=== PATIENT | male | born 1965 | race Caucasian/White ===

== ENCOUNTER → 2017-03-17 | Outpatient (CLI) | payer BC | END | disposition home or self-care (01) | LOC: GMAL 11:46 | PROVIDERS: ATTEND Family Medicine | DX: Z00.00 Encounter for general adult medical examination without abnormal findings (principal) ==

== ENCOUNTER 2018-04-26 20:48 | Emergency (ER) | payer SELFPAY ==
[2018-04-26 21:07] VITALS: O2SAT 99
[2018-04-26] MEDS ORDERED: KETOROLAC TROMETHAMINE INJ 30 MG/ML VIAL IM ONE (21:26)
--- NOTE | 2018-04-26 21:34 | ED.PDOC ---
History of Present Illness - General Chief Complaint: Laceration Stated Complaint: finger laceration Time Seen by Provider: 04/26/18 21:24 Source: patient Exam Limitations: no limitations - History of Present Illness Initial Comments: Patient presents with a laceration to the right distal anterior 2nd finger that he got when cut by a table saw this afternoon. He visited Dr. Garcia at his house and it was suggested that he come here for possible radiographs. The patient has significant pain at that area. No other injuries. Timing/Duration: 1-3 hours Severity: moderate Improving Factors: rest Associated Symptoms: denies symptoms Allergies/Adverse Reactions: Allergies Doxycycline Allergy (Verified 04/26/18 21:07) Home Medications: Ambulatory Orders Amphetamine-Dextroamphetamine [Adderall] 1 tab PO DAILY 04/26/18 Cephalexin Monohydrate [Keflex] 250 mg PO QID #28 cap 04/26/18 Finasteride [Proscar] 5 mg PO DAILY 04/26/18 HYDROcodone 5MG/APAP 325MG [Red Level 5/325] 1 PO DAILY 04/26/18 Ketorolac Tromethamine [Toradol Tabs] 10 mg PO Q6HRS #16 tab 04/26/18 Olmesartan Medoxomil [Benicar] 40 mg PO DAILY 04/26/18 Sertraline HCl [Zoloft] 50 mg PO DAILY 04/26/18 Review of Systems - Review of Systems Constitutional: States: no symptoms reported EENTM: States: no symptoms reported Respiratory: States: no symptoms reported Cardiology: States: no symptoms reported Gastrointestinal/Abdominal: States: no symptoms reported Genitourinary: States: no symptoms reported Musculoskeletal: States: see HPI Skin: States: see HPI Neurological: States: no symptoms reported Endocrine: States: no symptoms reported Hematologic/Lymphatic: States: no symptoms reported Past Medical History (General) - Patient Medical History Hx Hypertension: Yes Hx Diabetes: No - Vaccination History Hx Tetanus, Diphtheria Vaccination: No Hx Influenza Vaccination: No - Triage Comment ED Triage Comment: fingerpad on rt index finger sliced jagged with table saw cut at home Family Medical History - Family History Father Family History: Unknown Physical Exam - Physical Exam General Appearance: Alert Respiratory: lungs clear Cardiovascular/Chest: normal peripheral pulses, regular rate, rhythm Extremity: other - 5/5 strength to flexion/extension/adduction/abduction of the right 2nd finger. There is a complex laceration extending into the musculature with ripped edges. It is hemostatic and TTP. Nail is intact. Progress - Progress Progress: 04/26/18 22:45 Radiographs showed a tuft fracture of the right distal phalange of the second finger. Patient was given a U shaped splint to immobilize the DIP joint but keep the PIP joint free. Keflex 500 mg po x one in the E.D. and a 7 day RX for 250 qid. Patient asked to follow up with Dr. Urbina in 4-7 days. Care instructions given. E.R. warnings given. Questions were elicited and answered. Patient voiced understanding and agreement with the plan. Departure - Departure Clinical Impression: Closed fracture of tuft of distal phalanx of finger Disposition: Discharge to Home or Self Care Condition: Good Departure Forms: ED Discharge - Pt. Copy, Patient Portal Self Enrollment Instructions: DI for Laceration Repair, DI for [employer] Laceration (Not Requiring Sutures), Laceration Infection (DC) Diet: resume usual diet Activity: increase activity as tolerated Referrals: Jovi Garcia III, MD [Primary Care Provider] - 1-2 Weeks Prescriptions: Ketorolac Tromethamine [Toradol Tabs] 10 mg PO Q6HRS #16 tab Cephalexin Monohydrate [Keflex] 250 mg PO QID #28 cap Home Medications: Ambulatory Orders Amphetamine-Dextroamphetamine [Adderall] 1 tab PO DAILY 04/26/18 Cephalexin Monohydrate [Keflex] 250 mg PO QID #28 cap 04/26/18 Finasteride [Proscar] 5 mg PO DAILY 04/26/18 HYDROcodone 5MG/APAP 325MG [Red Level 5/325] 1 PO DAILY 04/26/18 Ketorolac Tromethamine [Toradol Tabs] 10 mg PO Q6HRS #16 tab 04/26/18 Olmesartan Medoxomil [Benicar] 40 mg PO DAILY 04/26/18 Sertraline HCl [Zoloft] 50 mg PO DAILY 04/26/18 Additional Instructions: See an orthopedic surgeon in 4-7 days. Take cephalexin as directed. Return to the E.R. for increasing pain, pus, swelling, or temperature above 100.4.
--- NOTE | 2018-04-26 21:57 | RAD ---
EXAM DESCRIPTION: Fingers,Right CLINICAL HISTORY: index finger cut by table saw COMPARISON: None FINDINGS: 3 view(s) submitted. Dressing limits detail. There is a probable nondisplaced tuft fracture of the right second distal phalanx. There is soft tissue injury. Overlying dressing limits sensitivity for radiopaque foreign body. IMPRESSION: Probable very subtle nondisplaced tuft fracture. Electronically signed by: Hermelindo Kulkarni 04/26/2018 9:56 PM [facility]
[2018-04-26] MEDS ORDERED: NEOMYCIN-BACITRACIN-POLYMYXIN 0.9 GM UD TOP ONE (22:23)
[2018-04-26] MEDS ORDERED: CEPHALEXIN MONOHYDRATE 500 MG CAP PO ONE (22:31)
[2018-04-26] MEDS ORDERED: CEPHALEXIN MONOHYDRATE 500 MG CAP ONE (22:32)
[2018-04-26 23:04] VITALS: BP 143/90; TEMP 97.9
== END 2018-04-26 23:04 | disposition home or self-care (01) ==
LOC: ER 20:48
DX: S62.660B Nondisplaced fracture of distal phalanx of right index finger, initial encounter for open fracture (principal); W31.2XXA Contact with powered woodworking and forming machines, initial encounter; Y92.009 Unspecified place in unspecified non-institutional (private) residence as the place of occurrence of the external cause; Z88.1 Allergy status to other antibiotic agents
CPT/HCPCS: 73140; J1885

== ENCOUNTER → 2019-10-12 | Outpatient (CLI) | payer BC | LOC: GMAL 11:45 | PROVIDERS: ATTEND Family Medicine | DX: Z00.01 Encounter for general adult medical examination with abnormal findings (principal); E34.9 Endocrine disorder, unspecified ==